=== PATIENT | male | born 1965 | race Caucasian/White ===

== ENCOUNTER 2017-11-13 23:32 | Emergency (ER) | payer MEDICAID ==
[~2017-11-13] VITALS: Ht 170.2 cm; Wt 68.2 kg
[~2017-11-13 23:32] MED LIST: ALLEGRA-D1 TAB.SR1 PO; ATRIPLA TABLET1 TAB PO; AUGMENTIN1 TAB.SR . PO; CELEXA40 MG PO; LEVAQUIN500 MG PO; LEVAQUIN750 MG PO; MAALOX PLUS X-355 ML PO; NORCO 10/325 TA1 TA1 PO; SEROQUEL100 MG PO; VALIUM10 MG PO; VITAMIN B-1000 MCG/M IM; [UNRECOGNIZED DRUG - REMARK]
[2017-11-13 23:47] VITALS: Ht 170.2 cm; Wt 68.2 kg
[2017-11-14 00:25] LABS: HEMOGLOBIN 13.6 g/dL (13.5-17.5); LYMPHOCYTES 39.4 % (15-50); MCH 28.1 pg (26.0-34.0); MCHC 33.2 g/dL (31.0-37.0); MCV 84.7 fL (80.0-100.0); MEAN PLATELET VOLUME 8.3 fL (7.4-10.4); NEUTROPHILS 54.3 % (40-80); PLATELET COUNT 197 10x3/uL (130-400); RBC 4.84 10x6/uL (4.20-6.10); RDW 13.4 % (11.5-14.5); WBC 4.7 10x3/uL (4.8-10.8)
[2017-11-14 00:30] LABS: ALBUMIN 3.3 g/dL (3.4-5.0); ALKALINE PHOSPHATASE 122 U/L (46-116); ALT (SGPT) 26 U/L (10-68); BILIRUBIN - TOTAL 0.29 mg/dL (0.2-1.3); C-REACTIVE PROTEIN 1.2 mg/dL (0.0-0.9); CALC OSMOLALITY 277 mosm/kg (275-300); CALCIUM 8.4 mg/dL (8.5-10.1); CARBON DIOXIDE 27.5 mmol/L (21.0-32.0); CHLORIDE - SERUM 104 mmol/L (98-107); CREATININE - SERUM 0.8 mg/dL (0.6-1.3); GLUCOSE 113 mg/dL (74-106); POTASSIUM - SERUM 4.2 mmol/L (3.5-5.1); PROTEIN - SERUM 7.3 g/dL (6.4-8.2); SODIUM 140 mmol/L (136-145); UREA NITROGEN 8 mg/dL (7-18); eGFR NON AFRICAN AMERICAN > 90 mL/min (90-120)
[2017-11-14 01:31] LABS: APPEARANCE CLEAR (CLEAR); BILIRUBIN NEGATIVE (NEGATIVE); COLOR YELLOW (YELLOW); GLUCOSE NEGATIVE (NEGATIVE); KETONE NEGATIVE (NEGATIVE); NITRITE NEGATIVE (NEGATIVE); PROTEIN NEGATIVE (NEGATIVE); SPECIFIC GRAVITY 1.015 (1.005-1.020); UROBILINOGEN NORMAL (NORMAL)
[2017-11-14 01:32] LABS: BACTERIA NONE SEEN /hpf (NONE SEEN); EPITHELIAL CELLS 0-5 /hpf (0-5); RED CELLS - URINE 0-5 /hpf (0-5); WHITE CELLS - URINE 0-5 /hpf (0-5)
[2017-11-14] MEDS ORDERED: CIPRO500 MG PO (01:44)
[2017-11-14] MEDS ORDERED: TYLENOL W/CODEI1 TAB PO (01:44)
[2017-11-14 02:46] VITALS: BP 139/70
[2017-11-14 02:50] LABS: UDS - AMPHET POSITIVE QUAL (NEGATIVE); UDS - BARB NEGATIVE QUAL (NEGATIVE); UDS - BENZO NEGATIVE QUAL (NEGATIVE); UDS - COCAINE NEGATIVE QUAL (NEGATIVE); UDS - OPIATE NEGATIVE QUAL (NEGATIVE); UDS - PCP NEGATIVE QUAL (NEGATIVE); UDS - THC NEGATIVE QUAL (NEGATIVE)
== END 2017-11-14 02:51 | disposition home or self-care (01) ==
LOC: D.ER 23:32
PROVIDERS: Family Medicine
DX: N45.3 Epididymo-orchitis (principal); N50.811 Right testicular pain; G40.909 Epilepsy, unspecified, not intractable, without status epilepticus

== ENCOUNTER 2018-10-01 20:23 | Emergency (ER) | payer MEDICAID ==
[~2018-10-01 20:23] MED LIST changes: +CIPRO500 MG PO; +TYLENOL W/CODEI1 TAB PO
[2018-10-01 20:24] VITALS: BP 122/69; BMI 21.9
--- NOTE | 2018-10-01 22:42 | NUR ---
DR RENE NOTIFIED AND REVIEWED PT'S BEHAVIOR AND ASSESSMENT RESULTS. PT IS A LOW RISK PER DR RENE. DR RENE STATED TO GIVE RESOURCES TO PT AT TIME OF DISCHARGE. NO FURTHER ORDERS AT THIS TIME, RESOURCES REVIEWED WITH PT AND HE VERBALIZED UNDERSTANDING.
== END 2018-10-01 21:47 | disposition left against medical advice (07) ==
LOC: D.ER 20:23
DX: L98.9 Disorder of the skin and subcutaneous tissue, unspecified (principal)

== ENCOUNTER 2018-12-15 17:17 | Emergency (ER) | payer MEDICAID ==
[~2018-12-15] VITALS: Ht 170.2 cm; Wt 63.6 kg
[2018-12-15 17:22] VITALS: BP 128/72; Ht 170.2 cm; Wt 63.6 kg
[2018-12-15 18:10] LABS: APPEARANCE CLEAR (CLEAR); COLOR STRAW (YELLOW); SPECIFIC GRAVITY 1.005 (1.005-1.020)
[2018-12-15 18:11] LABS: BILIRUBIN NEGATIVE (NEGATIVE); GLUCOSE NEGATIVE (NEGATIVE); KETONE NEGATIVE (NEGATIVE); NITRITE NEGATIVE (NEGATIVE); PROTEIN NEGATIVE (NEGATIVE); UROBILINOGEN NORMAL (NORMAL)
== END 2018-12-15 18:19 | disposition left against medical advice (07) ==
LOC: D.ER 17:17
PROVIDERS: Emergency Medicine
DX: B20 Human immunodeficiency virus [HIV] disease (principal); L98.9 Disorder of the skin and subcutaneous tissue, unspecified

== ENCOUNTER 2019-04-14 20:39 | Emergency (ER) | payer MEDICAID ==
[~2019-04-14] VITALS: Ht 170.2 cm; Wt 65.9 kg
[2019-04-14 20:45] VITALS: BP 134/92; Ht 170.2 cm; Wt 65.9 kg
--- NOTE | 2019-04-14 21:51 | NUR ---
PATIENT DENIES BEING SUICIDIAL, HE SAYS HE DEPRESSED BUT NOT SUICIDIAL. HE HAS FULL BLOWN AIDS BUT HAS A POSITIVE OUTLOOK ON LIFE STILL. PATIENT DENIES NEEDING A 1-800 NUMBER TO CALL IN CASE HE STARTS TO FEEL SUICIDIAL.
[2019-04-14] MEDS ORDERED: SOLODYN115 MG PO (23:55)
== END 2019-04-15 00:20 | disposition home or self-care (01) ==
LOC: D.ER 20:39
DX: L08.9 Local infection of the skin and subcutaneous tissue, unspecified (principal)